=== PATIENT | male | born 1975 | race Caucasian/White ===

== ENCOUNTER → 2016-12-12 | Outpatient (CLI) | payer OTHER ==
[~2016-12-12] MED LIST: GABA800T2 PO; MORP30TA60 PO; PANT40TA2 PO; [UNRECOGNIZED DRUG - OTHER] PO
== END ==
LOC: PREOP 06:48
PROVIDERS: ATTEND Surgery
DX: Z01.818 Encounter for other preprocedural examination (principal); R19.5 Other fecal abnormalities

== ENCOUNTER 2016-12-17 08:00 | Day surgery (SDC) | payer OTHER ==
[~2016-12-17] VITALS: Ht 182.9 cm; Wt 90.7 kg
[2016-12-17] MEDS ORDERED: NS IV 1000 ML 1,000 ML IV STA (08:31)
[2016-12-17 08:34] VITALS: BP 134/94
--- NOTE | 2016-12-17 08:41 | Progress Note-Pre Operative ---
Pre-Operative Progress Note H&P Reviewed The H&P was reviewed, patient examined and no changes noted. Date H&P Reviewed: Dec 17, 2016 Time H&P Reviewed: 08:40 Pre-Operative Diagnosis: GERD, rlq abdominal pain, bloody stools PARISH DORMAN DO Dec 17, 2016 8:40 am
[2016-12-17] MEDS ORDERED: GABA800T2 PO (08:51)
[2016-12-17] MEDS ORDERED: [UNRECOGNIZED DRUG - OTHER] PO (08:51)
[2016-12-17] MEDS ORDERED: MORP30TA60 PO (08:51)
[2016-12-17] MEDS ORDERED: PROPOFOL INJECTION 50 ML IV ONE (08:57)
[2016-12-17] MEDS ORDERED: MIDAZOLAM 5 MG/5 ML (VERSED) VIAL ONE (08:57)
[2016-12-17 10:35] VITALS: BP 118/89
--- NOTE | 2016-12-17 10:37 | Progress Note-Post Operative ---
Post-Operative Progess Note Pre-Operative Diagnosis GERD, rlq abdominal pain, bloody stools Post-Operative Diagnosis gastritis, esophagitis, terminal ileum inflammaiton and polyps Post-Op Procedure Note Date of Procedure: Dec 17, 2016 Name of Procedure: egd c biopsies and colonosocpy c cold biopsy ileum Procedure Note/Findings see note Anesthesia Type per information security systems instructor Estimated blood loss (mL): none Specimen(s) collected antrum, distal esophagus, ileum PARISH DORMAN DO Dec 17, 2016 10:37 am
[2016-12-17] MEDS ORDERED: PANT40TA2 PO (10:38)
--- NOTE | 2016-12-17 10:39 | Discharge Inst-Simple/Standard ---
Discharge Inst-Standard Discharge Medications New, Converted or Re-Newed RX: RX on Chart Patient Instructions/Follow Up Plan of Care/Instructions/FU: 2 weeks Disha Activity as Tolerated: Yes Discharge Diet: Regular Diet PARISH DORMAN DO Dec 17, 2016 10:39 am
--- NOTE | 2016-12-17 10:57 | PROCEDURE REPORT ---
PROCEDURE PHYSICIAN: PARISH DORMAN DATE OF PROCEDURE: 12/17/2016 PREOPERATIVE DIAGNOSIS: 1. GERD. 2. Bloody stools. 3. 'Right lower quadrant abdominal pain. PROCEDURE: 1. EGD with biopsy of the antrum and distal esophagus. 2. Colonoscopy with biopsy of the distal ileum. SURGEON: Disha. ANESTHESIA: Per ASSEMBLY DETAILER. ESTIMATED BLOOD LOSS: None. COMPLICATIONS: None. INDICATIONS: The patient is a 41-year-old male who has been having right lower quadrant abdominal pain, bloody stools and reflux symptoms. The patient understands the risks and benefits of procedures and wished to proceed with procedures. Consent was signed on the chart. PROCEDURE: The patient was taken to the endoscopy suite, placed in left lateral recumbent position. Timeout was performed. The scope was inserted in the mouth, down the esophagus, stomach and into the duodenum. There were no polyps, masses, ulcerations within the duodenum. The scope was slowly retracted back to the stomach where there were some erythematous changes, possibly some small erosions of the antrum. Biopsy of the antrum was obtained. The scope was also retroflexed noting no further pathology. There were no polyps, masses or ulcerations on retroflexion. The scope was returned to its normal position and slowly withdrawn. In the distal esophagus some erythematous changes present, which biopsy was obtained. There were no polyps, masses, ulcerations. The scope was slowly retracted until completely removed. COLONOSCOPY: Digital rectal exam was performed. There were no palpable polyps, masses, ulcerations. No visualized abnormality. The scope was inserted in the rectum and advanced all the way to the cecum with minimal difficulty. Prep was adequate. The ileocecal valve was intubated. The terminal ileum had some erythematous changes and some appearance of small polyp formation. Biopsy of the ileum was obtained. The scope was withdrawn back into the colon and slowly retracted. There were no polyps, masses or ulcerations within the cecum, ascending, transverse, descending, or sigmoid colon. Once the rectum , the scope was then attempted to be retroflexed but due to it being narrow was able to be retroflexed. Therefore multiple insertions and retractions were made noting no other pathology. The patient will be started on Protonix 40 mg daily. We will follow-up on biopsies in approximately 2 to 3 weeks to see how his symptoms are doing at that time. Depending on pathology and symptoms he would likely benefit from GI consultation. Trino ID: [id number] Dictated Date: 12/17/2016 10:09:38 Transportation Engineer Date: 12/17/2016 10:48:44 / patricia
[2016-12-17 11:07] VITALS: BP 118/88
[2016-12-17 11:09] VITALS: BP 118/88
== END 2016-12-17 11:14 | disposition home or self-care (01) ==
LOC: ENDO 08:00
PROVIDERS: ATTEND Surgery
DX: K92.1 Melena (principal); K52.9 Noninfective gastroenteritis and colitis, unspecified; K21.9 Gastro-esophageal reflux disease without esophagitis
CPT/HCPCS: 88305; 88342